=== PATIENT | female | born 1945 | race Caucasian/White ===

== ENCOUNTER 2023-08-26 12:10 | Day surgery (SDC) | payer MEDICARE, BC ==
[2023-08-21 15:58] LABS: BASOPHILS # (AUTO) 0.1 X10'3 (0-0.2); BASOPHILS % (AUTO) 0.8 % (0-1); EOSINOPHILS # (AUTO) 0.2 X10'3 (0-0.9); EOSINOPHILS % (AUTO) 2.2 % (0-6); LYMPHOCYTES # (AUTO) 1.7 X10'3 (1.1-4.8); LYMPHOCYTES % (AUTO) 24.4 % (21-51); MEAN CORPUSCULAR HEMOGLOBIN 29.2 PG (27.0-31.0); MEAN CORPUSCULAR HGB CONC 33.5 g/dL (33.0-36.5); MEAN CORPUSCULAR VOLUME 87.3 FL (78-98); MEAN PLATELET VOLUME 9.3 FL (7.4-10.4); MONOCYTES # (AUTO) 0.4 X10'3 (0-0.9); MONOCYTES % (AUTO) 6.3 % (2-12); NEUTROPHILS # (AUTO) 4.6 X10'3 (1.8-7.7); NEUTROPHILS % (AUTO) 66.3 % (42-75); PRE OP HEMATOCRIT 40.4 % (35.0-45.0); PRE OP HEMOGLOBIN 13.5 g/dL (12.0-16.0); PRE OP PLATELET COUNT 293 X10'3 (140-440); RED BLOOD COUNT 4.62 X10'6 (4.20-5.60); RED CELL DISTRIBUTION WIDTH 14.2 % (11.5-14.5)
[2023-08-21 16:10] LABS: ALBUMIN 3.2 G/DL (3.4-5.0); ALBUMIN/GLOBULIN RATIO 0.8 (1.1-1.5); ALKALINE PHOSPHATASE 79 IU/L (46-116); BLOOD UREA NITROGEN 20 MG/DL (7-18); BUN/CREATININE RATIO 20.4 (10.0-20.0); CALCIUM 8.8 MG/DL (8.5-10.1); CHLORIDE 104 MMOL/L (99-107); CREATININE 0.98 MG/DL (0.40-0.90); PRE OP ALT 29 U/L (30-65); PRE OP ANION GAP 8 (8-16); PRE OP AST 26 U/L (10-37); PRE OP BILIRUB, TOTAL 0.4 MG/DL (0.0-1.0); PRE OP GLUCOSE 95 MG/DL (70-104); PRE OP POTASSIUM 3.8 MMOL/L (3.4-5.1); PRE OP SODIUM 140 MMOL/L (135-145); TOTAL PROTEIN 7.1 G/DL (6.4-8.2); eGFR 55 ML/MIN
[2023-08-21 16:21] LABS: BILIRUBIN,URINE NEGATIVE (Neg); CLARITY,URINE CLEAR (Clear); COLOR,URINE STRAW (Yellow); GLUCOSE, URINE NEGATIVE (Neg); KETONES,URINE NEGATIVE (Neg); LEUKOCYTE ESTERASE ,URINE SMALL (Neg); NITRITES, URINE NEGATIVE (Neg); OCCULT BLOOD,URINE NEGATIVE (Neg); PROTEIN,URINE NEGATIVE (Neg); UROBILINOGEN,URINE 0.2 E.U/dL (0.2-1.0)
[2023-08-21 16:24] LABS: UA COLLECTION TYPE CLN CATCH MIDSTREAM
[2023-08-21 16:34] LABS: BACTERIA,URINE FEW /HPF (Neg); SQUAMOUS EPITHELIAL CELL,UR MODERATE /LPF (FEW)
[2023-08-21 16:35] LABS: RBC,URINE 0-2 /HPF (0-2)
[2023-08-26] VITALS (14 sets, daily range): BP systolic 114–187; BP diastolic 52–82; PULSE 57–84; RESP 11–19; TEMP 97.8; O2SAT 93–100
[~2023-08-26] VITALS: Ht 156.2 cm; Wt 111.0 kg
[~2023-08-26 12:10] MED LIST: ATOR10TA70 PO; BRIM5DRO21 LEFTEYE; LOSA1TAB36 PO; MAGN250T29 PO; METF-517 PO; SEMA0.258 SQ
[2023-08-26] MEDS ORDERED: ringers solution, lacted 1,000 ML IV SCH (12:15)
[2023-08-26] MEDS ORDERED: ondansetron/PF 4mg/2ml inj IV PRN (12:15)
[2023-08-26] MEDS ORDERED: morphine 2 MG/ML inj. syringe IV PRN (12:15)
[2023-08-26] MEDS ORDERED: labetalol 20mg/4ml (5mg/ml) syringe IV PRN (12:15)
[2023-08-26] MEDS ORDERED: morphine 4 MG/ML inj SYRINge IV PRN (12:15)
[2023-08-26] MEDS ORDERED: meperidine/PF 25mg/ml syringe IV PRN ×3 (12:15)
[2023-08-26] MEDS ORDERED: enalaprilat dihydrate 2.5mg/2ml vial IV PRN (12:15)
[2023-08-26] MEDS ORDERED: proCHLORperazine 10 MG/2 ml inj IV PRN (12:15)
[2023-08-26] MEDS: famotidine 20mg tablet PO ONE (12:59)
[2023-08-26] MEDS: ceFOXitin 2GM-NS 100mL ADDvant 100 ML IV ONE (13:00)
[2023-08-26] MEDS: ringers solution, lacted 1,000 ML IV SCH (13:01)
[2023-08-26] MEDS ORDERED: sevoflurane 250ml liquid IH ONE (14:17)
[2023-08-26] MEDS ORDERED: midazolam 1 mg/ML 2ml injection ONE (14:20)
[2023-08-26] MEDS ORDERED: fentaNYL/PF 50MCG/1 ML 2ML syringe ONE (14:20)
[2023-08-26] MEDS ORDERED: LIDOcaine 2% (20mg/ml) 5ml vial ONE (14:21)
[2023-08-26] MEDS ORDERED: propofol inj 20 ML IV ONE (14:21)
[2023-08-26] MEDS ORDERED: ondansetron/PF 4mg/2ml inj ONE (14:37)
[2023-08-26] MEDS ORDERED: acetaminophen 1,000mg/100ml IV 100 ML IV ONE (15:08)
== END 2023-08-26 17:23 | disposition home or self-care (01) ==
LOC: PAS 12:10
PROVIDERS: ATTEND Obstetrics & Gynecology Obstetrics
DX: N95.0 Postmenopausal bleeding (principal); C54.1 Malignant neoplasm of endometrium; I10 Essential (primary) hypertension; E11.9 Type 2 diabetes mellitus without complications; E66.01 Morbid (severe) obesity due to excess calories; E78.5 Hyperlipidemia, unspecified; Z87.891 Personal history of nicotine dependence; Z79.84 Long term (current) use of oral hypoglycemic drugs; Z79.899 Other long term (current) drug therapy; Z90.49 Acquired absence of other specified parts of digestive tract; Z98.49 Cataract extraction status, unspecified eye; Z98.51 Tubal ligation status; Z98.891 History of uterine scar from previous surgery; Z98.890 Other specified postprocedural states; Z68.42 Body mass index [BMI] 45.0-49.9, adult; Z88.5 Allergy status to narcotic agent
CPT/HCPCS: 36415; 58558; 71046; 80053; 81001; 82948; 85025; 86885; 86900; 86901; 87077; 87088; 87186; A4355; A4618; A6258; A7000; J0131; J0694; J1100; J2001; J2250; J2405; J2704; J3010; J7030; J7120; Z7506; Z7508; Z7512; Z7610; J3490